=== PATIENT | female | born 1965 | race Caucasian/White ===

== ENCOUNTER 2019-10-30 08:32 | Day surgery (SDC) | payer MEDICARE, MEDICAID, SELFPAY ==
[2019-10-29 11:34] VITALS: BMI 25.0
--- NOTE | 2019-10-30 08:57 | ANES.PREANES ---
Pre-Anesthetic Assessment Pre-Anesthetic Assessment: Height/Weight: Height 1.52 m Weight 58.06 kg Preop Diagnosis: Acid reflux Proposed Procedure: Operation Date: 10/30/19 09:45 Proposed Procedures p EGD(Not Applicable) - Calvin Tellez MD Familial anesthetic complications: No trouble with anesthesia Was Beta Ventura taken within 24 hours: N/A Last intake: NPO since 1030 pm last night Social: Social History: Tobacco Packs per day: 1 ppd Exam: Pre-Anes Outpt Exam: alert, oriented x 3, clear to auscultation bilaterally and regular rate & rhythm Airway: Cervical ROM: WNL MP: 2 Additional comments: dentures Pulmonary: Pulmonary: COPD (supposed to be on oxygen - but hasn't had it in several months, no steroid use within last year) CV/HEM: CV/HEM: HTN : : None reported Hepatic: Hepatic: None reported GI: GI: GERD and Hiatus hernia Metabolic: Metabolic: Hyperlipidemia Musc/skel: Musc/skel: Fibromyalgia, Lower Back Pain and OA/DJD Neuropsych: Neuropsych: TIA Comments: Most recent TIA > 4 yrs ago Anesthetic Plan: ASA status: III Anesthesia: MAC Risk of > 500 ml blood loss (7ml/kg in children): No PFSH Anesthesia PFSH: Social History (Updated 10/29/19 @ 11:32 by Berta Conde) Smoking and tobacco status: current every day smoker Alcohol intake: current Alcohol intake frequency: 0-2 Drinks per Day Alcohol type: beer Data Anesthesia Cardiac Studies: No Data to Display
--- NOTE | 2019-10-30 09:51 | PM.HPUD ---
H&P update H&P Update: DATE OF SURGERY/PROCEDURE: 10/30/19 DATE H&P PERFORMED: 10/03/19 H&P UPDATE INFORMATION: H&P completed within last 30 days, No changes to prior documentation and H&P is in [facility] EMR on date indicated PREOP DIAGNOSIS: gerd PRIMARY INDICATION FOR PROCEDURE: gerd persistent PLANNED PROCEDURE: Operation Date: 10/30/19 09:45 Proposed Procedures p EGD(Not Applicable) - Calvin Tellez MD Full H&P Perinent History: Social History: Social History Smoking and tobacco status: current every day smoker Alcohol intake: current Alcohol intake frequency: 0-2 Drinks per Day Alcohol type: beer
[2019-10-30 09:55] VITALS: BP 187/114; PULSE 76; RESP 18; TEMP 36.3; O2SAT 97
[2019-10-30] MEDS: sodium chloride 0.9% 1,000 ML 30 ML (09:58)
[2019-10-30 10:40] VITALS: BP 120/81; PULSE 80; RESP 16; TEMP 36.6; O2SAT 98
--- NOTE | 2019-10-30 11:06 | ANE.PACU ---
 Inpatient post-anesthesia follow up: Airway intact: Yes Vital signs: Temperature 97.8 F Pulse Rate [Apical ] 80 Respiratory Rate 16 Blood Pressure [Le ft Arm] 120/81 Pulse Oximetry 98 Oxygen Delivery Me thod Nasal Cannula Oxygen Flow Rate 3 Fraction of Inspir ed Oxygen Hydration adequate: Yes Nausea and vomiting: No Pain level: 1 Mental status: Baseline
[2019-10-30 11:22] VITALS: BP 152/94; PULSE 77; RESP 18; O2SAT 100
[2019-10-31 05:57] LABS: H. Pylori / CLO Test Negative
== END 2019-10-30 11:21 | disposition home or self-care (01) ==
PROVIDERS: Family Provider Family Medicine; PCP Family Medicine; Visit Provider Surgery
PROC: 0DJ08ZZ Inspection of Upper Intestinal Tract, Via Natural or Artificial Opening Endoscopic (ICD-10-PCS; CPT 43235; principal; 2019-10-30 09:45)
DX: K21.9 Gastro-esophageal reflux disease without esophagitis (principal); K29.70 Gastritis, unspecified, without bleeding; F17.210 Nicotine dependence, cigarettes, uncomplicated; J44.9 Chronic obstructive pulmonary disease, unspecified; I10 Essential (primary) hypertension; E78.5 Hyperlipidemia, unspecified; M79.7 Fibromyalgia; Z86.73 Personal history of transient ischemic attack (TIA), and cerebral infarction without residual deficits
CPT/HCPCS: 43239; 87077; J2704; J7030

== ENCOUNTER 2019-11-28 06:38 | Outpatient (CLI) | payer MEDICARE, SELFPAY ==
[2019-11-28 08:33] VITALS: O2SAT 93; O2SAT 96
== END 2019-11-28 06:39 | disposition home or self-care (01) ==
LOC: RT 08:38
PROVIDERS: Family Provider Family Medicine; PCP Family Medicine; Visit Provider Internal Medicine Critical Care Medicine
DX: J44.9 Chronic obstructive pulmonary disease, unspecified (principal)
CPT/HCPCS: 94060; 94726; 94729; J7611

== ENCOUNTER 2019-11-28 06:38 | Outpatient (CLI) | payer MEDICARE, SELFPAY ==
--- NOTE | 2019-11-28 08:01 | ECG_ITS ---
NAME OF STUDY: TREADMILL STRESS TEST INDICATION: Chest Pain; Dyspnea, EXERCISE DATA: The patient was exercised by [facility] protocol. Baseline heart rate was 71 beats per minute. Baseline blood pressure was 173/105 millimeters of mercury. Target heart rate was 168 beats per minute. Maximum heart rate achieved was 147, which was 87 % of the target heart rate. Maximum blood pressure was 233/112 millimeters of mercury. Total exercise time was 6 minutes 31 seconds. Maximum METs achieved was 10.2, maximum VO2 was 35.7. The reason for ending the test was maximum effort achieved. The patient complained of shortness of breath during the stress test, which then resolved at the end of the test. ELECTROCARDIOGRAM: BASELINE: Sinus rhythm, normal axis, no significant ST-T changes at the baseline noted. EXERCISE: At the peak exercise level, No significant ST-T changes suggestive of ischemia noted. RECOVERY: During the recovery period, heart rate dropped appropriately. No significant ST-T changes in the recovery suggestive of ischemia noted. CONCLUSION: 1. Exercise capacity fair. 2. Heart rate response was appropriate. 3. Blood pressure response was hypertensive. 4. Symptoms not suggestive of ischemia. 5. Electrocardiogram portion of the stress test was not suggestive of ischemia. 6. Nuclear scan will be documented separately. Electronically Signed On 11-28-2019 11:35:40 INSURANCE COORDINATOR by Paolo Wynn M.D. [email or web address]
[2019-11-28 08:03] VITALS: BMI 25.4
[2019-11-28 08:30] VITALS: BP 199/100; PULSE 99
== END 2019-11-28 06:39 | disposition home or self-care (01) ==
LOC: CDL 06:38
PROVIDERS: Family Provider Family Medicine; PCP Family Medicine; Visit Provider Internal Medicine Cardiovascular Disease
DX: R07.9 Chest pain, unspecified (principal)
CPT/HCPCS: 93017

== ENCOUNTER → 2020-01-13 10:57 | Outpatient (BNVA) | payer MEDICARE, MEDICAID, SELFPAY | PROVIDERS: Family Provider Family Medicine; PCP Family Medicine; Visit Provider Nurse Practitioner Family | DX: R68.89 Other general symptoms and signs (principal); J44.1 Chronic obstructive pulmonary disease with (acute) exacerbation | CPT/HCPCS: 87400 ==

== ENCOUNTER → 2020-01-14 12:04 | Outpatient (BNVA) | payer MEDICARE, MEDICAID, SELFPAY | PROVIDERS: Family Provider Family Medicine; PCP Family Medicine; Visit Provider Nurse Practitioner Family | DX: J44.1 Chronic obstructive pulmonary disease with (acute) exacerbation (principal); R68.89 Other general symptoms and signs | CPT/HCPCS: 87635 ==